=== PATIENT | female | born 1970 | race Caucasian/White ===

== ENCOUNTER 2016-07-22 12:59 | Emergency (ER) | payer MEDICAID ==
[~2016-07-22] VITALS: Wt 89.0 kg
[2016-07-22 15:16] LABS: ADD UMIC YES; URINE BILIRUBIN (Dip) NEGATIVE (NEGATIVE); URINE BLOOD (Dip) TRACE (NEGATIVE); URINE COLOR LT. YELLOW (YELLOW); URINE GLUCOSE (Dip) NEGATIVE (NEGATIVE); URINE KETONES (Dip) NEGATIVE (NEGATIVE); URINE LEUKOCYTE ESTERASE (Dip) NEGATIVE (NEGATIVE); URINE NITRITE (Dip) NEGATIVE (NEGATIVE); URINE TOTAL PROTEIN (Dip) NEGATIVE (NEGATIVE); URINE UROBILINOGEN (Dip) 0.2 E.U./dL (0.1-1.0)
[2016-07-22 15:25] LABS: BASOPHILS % 0.4 % (0.0-2.0); EOSINOPHILS # 0.1 10^3/ul (0.0-0.5); EOSINOPHILS % 1.7 % (0.0-7.0); HEMATOCRIT 41.8 % (37.0-47.0); HEMOGLOBIN 14.2 g/dl (12.0-16.0); LYMPHOCYTES # 1.9 10^3/ul (0.8-2.9); LYMPHOCYTES % 28.6 % (15.0-51.0); MEAN CORPUSCULAR HEMOGLOBIN 29.6 pg (29.0-33.0); MEAN CORPUSCULAR HGB CONC 33.9 g/dl (32.0-37.0); MEAN CORPUSCULAR VOLUME 87.4 fl (82.0-101.0); MEAN PLATELET VOLUME 9.2 fl (7.4-10.4); MONOCYTE # 0.7 10^3/ul (0.3-0.9); MONOCYTES % 10.2 % (0.0-11.0); NEUTROPHILS % 59.1 % (39.0-77.0); PLATELET COUNT 236 10^3/UL (140-440); RED BLOOD COUNT 4.79 10^6/ul (4.20-5.40); RED CELL DISTRIBUTION WIDTH 14.3 % (11.5-14.5); UNCORRECTED WBC 6.7 10^3/ul (4.8-10.8); WHITE BLOOD COUNT 6.7 10^3/ul (4.8-10.8)
[2016-07-22 15:26] LABS: BACTERIA,URINE FEW; SQUAMOUS EPITHELIAL CELL,UR FEW; URINE RBCS 0-2 /HPF (0)
[2016-07-22 15:31] LABS: CONDITION 1
[2016-07-22 15:34] LABS: ALBUMIN 4.4 g/dl (3.3-4.9)
[2016-07-22 15:35] LABS: POTASSIUM 4.1 mmol/L (3.5-5.1)
[2016-07-22 15:37] LABS: ALBUMIN/GLOBULIN RATIO 1.12; BILIRUBIN,INDIRECT 0.5 mg/dl (0-1.1); BILIRUBIN,TOTAL 0.5 mg/dl (0.2-1.3); CREATININE 0.63 mg/dl (0.44-1.00); TOTAL PROTEIN 8.3 g/dl (6.1-8.1)
[2016-07-22 15:38] LABS: CALCIUM 9.1 mg/dl (8.4-10.2)
--- NOTE | 2016-07-22 15:42 | RADRPT ---
PROCEDURE: CT Abdomen and Pelvis without contrast. CLINICAL INDICATION: Abdominal pain TECHNIQUE: CT of the abdomen and pelvis was performed on a multi-detector scanner without IV contr ast. Coronal and sagittal images were reformatted from the axial data set. One or more of the foll owing dose reduction techniques were used: automated exposure control, adjustment of the mA and/or kV according to patient size, use of iterative reconstruction technique. CTDI = 21.28 mGy. DLP = 11 39.97 mGy-cm. COMPARISON: CT, 11/06/2014 FINDINGS: CT abdomen: The lung bases are clear. The heart size is normal, without pericardial effusion. Liver, gallbladd er, biliary tree, pancreas, spleen, adrenal glands and kidneys are unremarkable. No urolithiasis or obstructive uropathy is identified. The stomach is grossly unremarkable. The aorta is of normal caliber. There is no retroperitoneal lymphadenopathy. The kevon hepatis reg ion is clear. CT pelvis: No bowel obstruction, free intraperitoneal air or abscess is identified. Sigmoid diverticulosis is seen without diverticulitis. There is no appendicitis or colitis. Urinary bladder, uterus and adne xa are grossly unremarkable. No pelvic mass, free fluid or lymphadenopathy is identified. The surrounding osseous structures are remarkable for degenerative spondylosis of the spine. No ost eolytic or osteoblastic lesion is detected. There is chronic grade 1 anterolisthesis at L5-S1 second gabriela to facet arthrosis. IMPRESSION: 1. Sigmoid diverticulosis is seen, without diverticulitis. 2. No mass, lymphadenopathy, or focal acute inflammatory process is identified. RPTAT: EE .Wali Alfred MD, Date Time Electronically viewed and signed by .Wali Alfred MD, MD on 07/22/2016 15:41 .R/
[2016-07-22] MEDS ORDERED: IBUP-1542 PO (15:51)
[2016-07-22] MEDS ORDERED: DOCU-144 PO (15:51)
--- NOTE | 2016-07-22 15:54 | ERD ---
ER Documentation Chief Complaint Date/Time DATE: 07/22/16 TIME: 15:52 Chief Complaint abd pain for the past 2 weeks. no vomiting. no diarrhea. HPI This 45-year-old female complains of lower abdominal pain for last 2 weeks. She denies vomiting, fevers, urinary complaints. The pain is described as being suprapubic and bilateral without focal right lower quadrant or left lower quadrant tenderness. Patient denies any constipation ROS All systems reviewed and are negative except as per history of present illness. Medications Home Meds Active Scripts Docusate Sodium* (Colace*) 100 Mg Capsule, 100 MG PO BID, #30 CAP Prov:SUZY VIRGEN MD 07/22/16 Ibuprofen* (Ibuprofen*) 600 Mg Tablet, 600 MG PO Q6, #20 TAB Prov:SUZY VIRGEN MD 07/22/16 Allergies Allergies: Coded Allergies: No Known Drug Allergies (Verified Allergy, Mild, 07/22/16) PMhx/Soc History of Surgery: Yes () Anesthesia Reaction: No Hx Neurological Disorder: No Hx Respiratory Disorders: No Hx Cardiac Disorders: No Hx Psychiatric Problems: No Hx Alcohol Use: No Hx Substance Use: No Hx Tobacco Use: No Smoking Status: Never smoker Physical Exam Vitals Vital Signs Date Time Temp Pulse Resp B/P Pulse Ox O2 Delivery O2 Flow Rate FiO2 07/22/16 13:17 98.5 68 20 135/91 100 Physical Exam Const: [] Head: Atraumatic Eyes: Normal Conjunctiva ENT: Normal External Ears, Nose and Mouth. Neck: Full range of motion..~ No meningismus. Resp: Clear to auscultation bilaterally Cardio: Regular rate and rhythm, no murmurs Abd: Soft, non tender, non distended. Normal bowel sounds Skin: No petechiae or rashes Back: No midline or flank tenderness Ext: No cyanosis, or edema Neur: Awake and alert Psych: Normal Mood and Affect Result Diagram: 07/22/16 1510 07/22/16 1510 Results 24 hrs Laboratory Tests Test 07/22/16 15:09 07/22/16 15:10 Urine Bacteria FEW Urine Bilirubin NEGATIVE Urine Clarity CLEAR Urine Color LT. YELLOW Urine Glucose NEGATIVE% Urine Hemoglobin TRACE Urine Ketones NEGATIVE Urine Leukocyte Esterase NEGATIVE Urine Microscopic RBC 0-2/HPF Urine Microscopic WBC 0-2/HPF Urine Nitrite NEGATIVE Urine Specific [place] 1.015 Urine Squamous Epithelial Cells FEW Urine Total Protein NEGATIVE Urine Urobilinogen 0.2 E.U./dL Urine pH 5.5 Alanine Aminotransferase (ALT/SGPT) 45IU/L Albumin 4.4g/dl Albumin/Globulin Ratio 1.12 Alkaline Phosphatase 94IU/L Anion Gap 17 Aspartate Amino Transf (AST/SGOT) 30IU/L Basophils # 0.010^3/ul Basophils % 0.4% Blood Urea Nitrogen 10mg/dl Calcium Level 9.1mg/dl Carbon Dioxide Level 28mmol/L Chloride Level 102mmol/L Creatinine 0.63mg/dl Direct Bilirubin 0.00mg/dl Eosinophils # 0.110^3/ul Eosinophils % 1.7% Globulin 3.90g/dl Glucose Level 84mg/dl Hematocrit 41.8% Hemoglobin 14.2g/dl Indirect Bilirubin 0.5mg/dl Lipase 48U/L Lymphocytes # 1.910^3/ul Lymphocytes % 28.6% Mean Corpuscular Hemoglobin 29.6pg Mean Corpuscular Hemoglobin Concent 33.9g/dl Mean Corpuscular Volume 87.4fl Mean Platelet Volume 9.2fl Monocytes # 0.710^3/ul Monocytes % 10.2% Neutrophils # 4.010^3/ul Neutrophils % 59.1% Nucleated Red Blood Cells # 0.010^3/ul Nucleated Red Blood Cells % 0.0/100WBC Platelet Count 63366^3/UL Potassium Level 4.1mmol/L Red Blood Count 4.7910^6/ul Red Cell Distribution Width 14.3% Sodium Level 143mmol/L Total Bilirubin 0.5mg/dl Total Protein 8.3g/dl White Blood Count 6.710^3/ul Procedures/MDM Patient presents with uncertain cause of lower abdominal pain with no appreciable significant findings on clinical exam. CBC and CMP and urine are normal. Urine is negative for any abnormalities and hCG is negative. CT abdomen pelvis is read as normal except for diverticulosis without evidence of diverticulitis. Patient shows no evidence of appendicitis, abscess, obstruction , other causes of acute abdomen. Patient will be treated with Motrin and Colace and observation at home. The patient was stable with no new complaints during the ER course. Clinically, there is no current evidence to suggest meningitis, sepsis, acute abdomen, pneumonia, acute coronary syndrome, pulmonary embolism, or any other emergent condition appearing to require further evaluation or hospitalization. The patient should certainly return for any new or worsening symptoms per the aftercare instructions. They should otherwise follow-up with her primary care doctor for reevaluation this week. Departure Diagnosis: Primary Impression: Abdominal pain Abdominal location: lower abdomen, unspecified Qualified Code: R10.30 - Lower abdominal pain Condition: Stable Patient Instructions: Abdominal Pain Additional Instructions: Examines normal hoy. Cheque otro vez con treviño doctor primario en el proximo maya or regresa para mas o nueva simptomas. SUZY VIRGEN MD Jul 22, 2016 15:53
== END 2016-07-22 16:59 | disposition home or self-care (01) ==
LOC: FTE 12:59
DX: R10.30 Lower abdominal pain, unspecified (principal)
CPT/HCPCS: 36415; 74176; 80053; 81001; 81003; 83690; 85025

== ENCOUNTER 2018-12-05 13:41 | Emergency (ER) | payer MEDICAID, OTHER ==
[~2018-12-05] VITALS: Ht 154.9 cm; Wt 89.1 kg
[~2018-12-05 13:41] MED LIST: DOCU-144 PO; IBUP-1542 PO
[2018-12-05 14:07] VITALS: Ht 154.9 cm; Wt 89.1 kg
[2018-12-05] MEDS ORDERED: KETOROLAC 30 MG INJ IV STA (15:20)
[2018-12-05] MEDS ORDERED: POTASSIUM CHLORIDE (SR) 20 MEQ TAB PO STA (17:27)
[2018-12-05] MEDS ORDERED: IBUP-1542 PO (17:29)
--- NOTE | 2018-12-05 17:30 | ERD ---
ER Documentation Chief Complaint Chief Complaint c/o chest pain rad to shoulders x2 days and high BP at home HPI Patient is a 48-year-old female with no medical problems who presents with chest pain. Please note that a barrel charrer helper was used for the entire history and physical exam. The patient felt desperate like she was "needing to run out of the house". She has left-sided pain that she describes as a "stabbing". She tried Advil liquid gel. The pain comes and goes. Upon review of old medical records this is the patient's sixth visit to the ER since 2010. The patient does not currently have a primary doctor. ROS All systems reviewed and are negative except as per history of present illness. Medications Home Meds Active Scripts Ibuprofen* (Motrin*) 600 Mg Tab, 600 MG PO Q6H PRN for PAIN AND OR ELEVATED TEMP, #30 TAB Prov:LINDSEY LEO MD 12/05/18 Discontinued Scripts Docusate Sodium* (Colace*) 100 Mg Capsule, 100 MG PO BID, #30 CAP Prov:SUZY VIRGEN MD 07/22/16 Ibuprofen* (Ibuprofen*) 600 Mg Tablet, 600 MG PO Q6, #20 TAB Prov:SUZY VIRGEN MD 07/22/16 Allergies Allergies: Coded Allergies: No Known Drug Allergies (Verified Allergy, Mild, 12/05/18) PMhx/Soc History of Surgery: Yes () Anesthesia Reaction: No Hx Neurological Disorder: No Hx Respiratory Disorders: No Hx Cardiac Disorders: No Hx Psychiatric Problems: No Hx Miscellaneous Medical Probl: Yes (gallstones) Hx Alcohol Use: No Hx Substance Use: No Hx Tobacco Use: No Smoking Status: Never smoker FmHx Family History: coronary disease Physical Exam Vitals Vital Signs Date Temp Pulse Resp B/P (MAP) Pulse Ox O2 O2 Flow FiO2 Time Delivery Rate 12/05/18 98.1 86 18 124/89 100 Room Air 17:37 (101) 12/05/18 100.0 93 20 135/83 98 14:07 (100) Physical Exam Const: No acute distress Head: Atraumatic Eyes: Normal Conjunctiva ENT: Normal External Ears, Nose and Mouth. Neck: Full range of motion. No meningismus. Resp: Clear to auscultation bilaterally Cardio: Regular rate and rhythm, no murmurs Abd: Soft, non tender, non distended. Normal bowel sounds Skin: No petechiae or rashes Back: No midline or flank tenderness Ext: No cyanosis, or edema Neur: Awake and alert Psych: Normal Mood and Affect Result Diagram: 12/05/18 1535 12/05/18 1535 Results 24 hrs Laboratory Tests Test 12/05/18 15:35 12/05/18 15:45 White Blood Count 8.5 10^3/ul Red Blood Count 4.91 10^6/ul Hemoglobin 13.6 g/dl Hematocrit 40.7 % Mean Corpuscular Volume 82.9 fl Mean Corpuscular Hemoglobin 27.7 pg Mean Corpuscular Hemoglobin Concent 33.4 g/dl Red Cell Distribution Width 13.6 % Platelet Count 282 10^3/UL Mean Platelet Volume 10.8 fl Immature Granulocytes % 0.200 % Neutrophils % 57.9 % Lymphocytes % 30.3 % Monocytes % 10.4 % Eosinophils % 0.6 % Basophils % 0.6 % Nucleated Red Blood Cells % 0.0 /100WBC Immature Granulocytes # 0.020 10^3/ul Neutrophils # 4.9 10^3/ul Lymphocytes # 2.6 10^3/ul Monocytes # 0.9 10^3/ul Eosinophils # 0.1 10^3/ul Basophils # 0.1 10^3/ul Nucleated Red Blood Cells # 0.0 10^3/ul Sodium Level 139 mmol/L Potassium Level 3.0 mmol/L Chloride Level 102 mmol/L Carbon Dioxide Level 28 mmol/L Anion Gap 9 Blood Urea Nitrogen 13 mg/dl Creatinine 0.56 mg/dl Est Glomerular Filtrat Rate mL/min > 60 mL/min Glucose Level 122 mg/dl Calcium Level 9.0 mg/dl Troponin I < 0.012 ng/ml POC Beta HCG, Qualitative NEGATIVE Current Medications Medications Dose Sig/Becky Start Time Status Last (Trade) Ordered Route PRN Stop Time Admin Dose Reason Admin Ketorolac 30 mg ONCE STAT 12/05/18 DC 12/05/18 Tromethamine IV 15:20 15:56 (Toradol) 12/05/18 15:21 Potassium 40 meq ONCE STAT 12/05/18 DC 12/05/18 Chloride PO 17:27 17:35 (Klor-Con 20) 12/05/18 17:28 Procedures/MDM EKG read by me: Rate/Rhythm: Regular rate and rhythm at a rate of 83 Intervals: Normal Impression: No evidence of ischemia or arrhythmia Chest x-ray negative per radiology. Patient is a 48-year-old female with no medical problems who presents with chest pain. Laboratory studies are basically normal. EKG and chest x-ray are negative. At this point of acute coronary syndrome, pneumonia, pneumothorax, pulmonary embolism, or aortic dissection. I believe outpatient management is appropriate at this time. The patient was to follow-up closely with the local clinics within 24 to 48 hours for reevaluation. Departure Diagnosis: Primary Impression: Chest pain Chest pain type: unspecified Qualified Codes: R07.9 - Chest pain, unspecified Condition: Fair Patient Instructions: Chest Pain, Uncertain Cause Referrals: [facility] se calvillo hecho un examen mdico de control que le indica que no est en ximena condicin que requiera tratamiento urgente en el Departamento de Emergencia. Un estudio ms profundo y el tratamiento de treviño condicin pueden esperar sin ningn riesgo hasta que usted sea atendida/o en el consultorio de treviño mdico o ximena clnica. Es responsabilidad suya arreglar ximena ankur para el seguimiento del pranay. MANEJO DE CONDICIONES NO URGENTES EN EL FUTURO 1) Si usted tiene un mdico de atencin primaria: Usted debera llamar a treviño mdico de atencin primaria antes de venir al departamento de emergencia. Despus de las horas de consultorio, treviño doctor o treviño asociado/a est disponible por telfono. El mdico o enfermero de geri en el servicio telefnico puede asesorarle por juan medio para atender el problema, o pranay contrario se puede programar ximena ankur. 2) Si usted no tiene un mdico de atencin primaria: Llame al mdico o clnica de referencia que aparece abajo wander las horas de consultorio para hacer ximena ankur para que le vean. CLINICAS: [place] [id number] [phone] [facility] [address] [facility] [phone] [facility] [phone] [place] [phone] [place] [id number] [phone] [place] [phone] [address] Additional Instructions: Llame al doctor MAANA y carito ximena ANKUR PARA DENTRO DE 1-2 GARDINER.Dgale a la secretaria que nosotros le instruimos hacer esta ankur.Avise o llame si treviño condicin se empeora antes de la ankur. Regresa aqui si peor o no mejor. LINDSEY LEO MD December 05, 2018 17:30
[2018-12-05 17:37] VITALS: BP 124/89; PULSE 86; RESP 18
== END 2018-12-05 17:58 | disposition home or self-care (01) ==
LOC: E/R 13:41
DX: R07.9 Chest pain, unspecified (principal)
CPT/HCPCS: 36415; 71045; 80048; 81025; 84484; 85025; 93005; 96374; 99285; J1885